=== PATIENT | female | born 1975 | race Caucasian/White ===

== ENCOUNTER 2017-04-25 10:29 | Emergency (ER) | payer MEDICAID ==
[2017-04-25 10:59] VITALS: BP 124/80; PULSE 64; RESP 14; TEMP 97.8; O2SAT 100
--- NOTE | 2017-04-25 11:40 | RAD ---
PROCEDURE: Left Foot Radiographs. HISTORY: left foot/heel pain COMPARISON: None. FINDINGS: BONES: No acute fracture. JOINTS: Unremarkable. SOFT TISSUES: Normal. OTHER FINDINGS: Achilles enthesophyte. Small inferior plantar calcaneal spur. IMPRESSION: No demonstrated fracture or dislocation.
--- NOTE | 2017-04-25 12:10 | C.PDOC ---
History Of Present Illness 42 y/o female presents to the ER complaining of left heel pain which has been present for 3 to 4 weeks. Patient denies having any fall, injuries, calf pain, and sensory changes.Patient does not have any other complaints. Time Seen by Provider: 04/25/17 10:56 Chief Complaint (Nursing): Lower Extremity Problem/Injury History Per: Patient History/Exam Limitations: no limitations Onset/Duration Of Symptoms: Days Current Symptoms Are (Timing): Still Present Severity: Moderate Past Medical History Reviewed: Historical Data, Nursing Documentation, Vital Signs Vital Signs: Last Vital Signs Temp 97.8 F 04/25/17 10:56 Pulse 64 04/25/17 10:56 Resp 14 04/25/17 10:56 BP 124/80 04/25/17 10:56 Pulse Ox 100 04/25/17 14:24 - Medical History PMH: No Chronic Diseases Surgical History: No Surg Hx Family History: States: No Known Family Hx - Social History Hx Tobacco Use: No Hx Alcohol Use: No Hx Substance Use: No - Immunization History Hx Tetanus Toxoid Vaccination: Yes Hx Influenza Vaccination: Yes Hx Pneumococcal Vaccination: No Review Of Systems Except As Marked, All Systems Reviewed And Found Negative. Musculoskeletal: Positive for: Other (left heel pain) Neurological: Negative for: Weakness, Numbness Physical Exam - Physical Exam Appears: Non-toxic, No Acute Distress, Other (fine, comfortable) Skin: Normal Color, Warm Head: Atraumatic, Normacephalic Eye(s): bilateral: Normal Inspection, PERRL Nose: Normal Oral Mucosa: Moist Neck: Supple Chest: Symmetrical Cardiovascular: Rhythm Regular Respiratory: Normal Breath Sounds, No Accessory Muscle Use, No Rales, No Rhonchi , No Wheezing Extremity: Normal ROM (ROM intact in left ankle and toes), Tenderness (mild tenderness to palpation at insertion of achilles tendon and at heel in left foot ), No Calf Tenderness, No Deformity, No Swelling (left heel), Other (no erythema in left heel) ED Course And Treatment O2 Sat by Pulse Oximetry: 100 (RA) Pulse Ox Interpretation: Normal - Other Rad No standard instances X-Ray: Viewed By Me, Read By Radiologist Interpretation: PROCEDURE: Left Foot Radiographs. HISTORY: left foot/heel pain. COMPARISON: None. FINDINGS: BONES: No acute fracture. JOINTS: Unremarkable. SOFT TISSUES: Normal. OTHER FINDINGS: Achilles enthesophyte. Small inferior plantar calcaneal spur. IMPRESSION: No demonstrated fracture or dislocation. Progress Note: X-Ray of left foot shows some heel spurs. Patient has been discharged with prescription for Naproxen and told to follow up with podiatry. Disposition Counseled Patient/Family Regarding: Studies Performed, Diagnosis, Need For Followup, Rx Given - Disposition Referrals: Podiatry Clinic [Outside] Disposition: HOME/ ROUTINE Disposition Time: 12:05 Condition: STABLE Additional Instructions: FOLLOW UP WITH PODIATRY WITHIN 1 WEEK USE MEDICATION NEEDED FOR PAIN RETURN TO ER IF SYMPTOMS WORSEN Prescriptions: Naproxen 375 mg PO BID PRN #25 tablet PRN Reason: pain Instructions: Heel Spur (ED) Forms: [employer] (Latvian) Print Language: LEBANESE - POA Present On Arrival: None - Clinical Impression Clinical Impression: Heel spur - Scribe Statement The provider has reviewed the documentation as recorded by the Jose Jordan Provider Attestation: All medical record entries made by the Demianibelli were at my direction and personally dictated by me. I have reviewed the chart and agree that the record accurately reflects my personal performance of the history, physical exam, medical decision making, and the department course for this patient. I have also personally directed, reviewed, and agree with the discharge instructions and disposition.
== END 2017-04-25 12:27 | disposition home or self-care (01) ==
LOC: C.ER 10:29
DX: M77.32 Calcaneal spur, left foot (principal)